=== PATIENT | female | born 1985 | race Caucasian/White ===

== ENCOUNTER 2024-08-09 06:20 | Day surgery (SDC) | payer BC ==
[2024-08-09] MEDS ORDERED: Midazolam 1 MG/ML 2 ML SDV ONE (07:01)
[2024-08-09] MEDS ORDERED: fentaNYL 50 MCG/ML SDV ONE (07:01)
[2024-08-09] MEDS ORDERED: Propofol 200 MG/20 ML SDV ONE ×2 (07:01→07:33)
[2024-08-09] MEDS: Lactated Ringers 1,000 ML IV SCH (07:16)
[2024-08-09 08:54] VITALS: BP 112/75; PULSE 82
== END 2024-08-09 08:55 | disposition home or self-care (01) ==
LOC: JP.SDS 06:20
PROVIDERS: ATTEND Family Medicine
DX: Z12.11 Encounter for screening for malignant neoplasm of colon (principal); D12.3 Benign neoplasm of transverse colon; E66.9 Obesity, unspecified; Z80.0 Family history of malignant neoplasm of digestive organs; Z88.0 Allergy status to penicillin
CPT/HCPCS: 45380; J2250; J2704; J3010; J7120; 00811-QZ; 88305